=== PATIENT | female | born 1955 | race Hispanic/Latino ===

== ENCOUNTER 2017-06-24 17:25 | Emergency (ER) | payer OTHER ==
[2017-06-24 18:21] VITALS: TEMP 98.5
--- NOTE | 2017-06-24 19:31 | ED PDOC ---
Arrival/HPI - General Historian: Patient, EMS <Vitaly lopez A - Last Filed: 06/25/17 00:27> <Zachary Dickinson - Last Filed: 06/27/17 16:53> - General Chief Complaint: Alcohol Ingestion Time Seen by Provider: 06/24/17 18:19 - History of Present Illness Narrative History of Present Illness (Text): 06/24/17 19:24 62yo female biba for alcohol intoxication. Patient was picked up from the street. Patient admits drinking alcohol. States she drank 2Vodkas today. She refused to answer any other question, asking to go home. (Vitaly Da Silva A) Past Medical History - Provider Review Nursing Documentation Reviewed: Yes - Psychiatric Hx Substance Use: No Other/Comment: DENIES ANY PSYCHIATRIC HX. <Vitaly Da Silva A - Last Filed: 06/25/17 00:27> Family/Social History - Physician Review Nursing Documentation Reviewed: Yes Family/Social History: Unknown Family HX Smoking Status: Never Smoked Hx Alcohol Use: Yes Frequency of alcohol use: Daily Hx Substance Use: No <RekhaVitaly A - Last Filed: 06/25/17 00:27> Allergies/Home Meds <RekhaVitaly A - Last Filed: 06/25/17 00:27> <Zachary Dickinson - Last Filed: 06/27/17 16:53> Allergies/Adverse Reactions: Allergies No Known Allergies Allergy (Verified 06/24/17 18:15) Home Medications: Home Meds Medication Instructions Recorded Confirmed No Known Home Med 06/24/17 06/24/17 Review of Systems - Review of Systems Systems not reviewed;Unavailable: Intoxicated <RekhaVitaly A - Last Filed: 06/25/17 00:27> Physical Exam Vital Signs Reviewed: Yes Temperature: Afebrile Blood Pressure: Normal Pulse: Regular Respiratory Rate: Normal Appearance: Positive for: Well-Appearing, Non-Toxic, Comfortable, Other (Appear sleepy, but arousable) Pain Distress: None Mental Status: Positive for: Lethargic - Systems Exam Head: Present: Atraumatic, Normocephalic Pupils: Present: PERRL Extroacular Muscles: Present: EOMI Conjunctiva: Present: Normal Mouth: Present: Moist Mucous Membranes Neck: Present: Normal Range of Motion Respiratory/Chest: Present: Clear to Auscultation, Good Air Exchange. No: Respiratory Distress, Accessory Muscle Use Cardiovascular: Present: Regular Rate and Rhythm, Normal S1, S2. No: Murmurs Abdomen: Present: Normal Bowel Sounds. No: Tenderness, Distention, Peritoneal Signs Back: Present: Normal Inspection Upper Extremity: Present: Normal Inspection. No: Cyanosis, Edema Lower Extremity: Present: Normal Inspection. No: Edema Neurological: Present: GCS=15, CN II-XII Intact, Speech Normal Skin: Present: Warm, Dry, Normal Color. No: Rashes Psychiatric: Present: Intoxicated <Vitaly Da Silva A - Last Filed: 06/25/17 00:27> Vital Signs Temp Pulse Resp BP Pulse Ox 06/25/17 00:34 98 H 18 126/82 99 06/24/17 18:16 98.5 F 105 H 17 126/93 H 97 Medical Decision Making <Vitaly Da Silva A - Last Filed: 06/25/17 00:27> <Zachary Dickinson - Last Filed: 06/27/17 16:53> ED Course and Treatment: 06/25/17 00:28 Patient was calm in ED. She was observed for sobriety. She refused blood work On re evaluation she was AAO x3. Ambulatory with steady gait. Was able to give her name and requested to go home. (Vitaly Da Silva) - Medication Orders Current Medication Orders: Discontinued Medications Lorazepam (Ativan) 2 mg IM ONCE ONE PRN Reason: Protocol Stop: 06/24/17 18:26 - PA / GUIDANCE SECRETARY / Resident Statement / has reviewed & agrees with the documentation as recorded. <Zachary Dickinson - Last Filed: 06/27/17 16:53> Disposition/Present on Arrival - Present on Arrival Any Indicators Present on Arrival: No History of DVT/PE: No History of Uncontrolled Diabetes: No Urinary Catheter: No History of Decub. Ulcer: No History Surgical Site Infection Following: None - Disposition Have Diagnosis and Disposition been Completed?: Yes Disposition Time: 00:30 Patient Plan: Discharge <Vitaly Da Silva A - Last Filed: 06/25/17 00:27> - Present on Arrival Any Indicators Present on Arrival: No History of DVT/PE: No History of Uncontrolled Diabetes: No Urinary Catheter: No History of Decub. Ulcer: No <Zachary Dickinson - Last Filed: 06/27/17 16:53> - Disposition Diagnosis: Alcohol intoxication Disposition: HOME/ ROUTINE Condition: STABLE Discharge Instructions (ExitCare): Alcohol Intoxication (ED) Additional Instructions: Stop drinking alcohol and join AA Follow up with your doctor Referrals: [facility], [Non-Staff] - Follow up with primary Forms: General Blood ([place])
[2017-06-25 00:35] VITALS: BP 126/82; PULSE 98; RESP 18; O2SAT 99
== END 2017-06-25 00:50 | disposition home or self-care (01) ==
LOC: EDBD 17:25 → ED 17:25
DX: F10.129 Alcohol abuse with intoxication, unspecified (principal); Y90.9 Presence of alcohol in blood, level not specified